=== PATIENT | male | born 1970 | race Caucasian/White ===

== ENCOUNTER 2016-12-30 19:41 | Emergency (ER) | payer OTHER ==
[2016-12-30] MEDS ORDERED: HYDROcodone/Acetaminophen 10/325 mg Tablet ONE (20:44)
--- NOTE | 2016-12-30 22:26 | RAD ---
RIGHT LEG TWO VIEWS: Date: 12-30-16 FINDINGS: An oblique fracture of the distal fibular shaft is present with no displacement. The ankle joint its elf appears intact. The tibia appears intact. IMPRESSION: Oblique fracture of the distal fibular shaft. POS: HOME
== END 2016-12-30 21:00 | disposition home or self-care (01) ==
LOC: BURERS 19:41
DX: S82.831A Other fracture of upper and lower end of right fibula, initial encounter for closed fracture (principal); F17.220 Nicotine dependence, chewing tobacco, uncomplicated; W19.XXXA Unspecified fall, initial encounter
CPT/HCPCS: 27781

== ENCOUNTER 2019-02-11 18:35 | Emergency (ER) | payer OTHER ==
[2019-02-11] MEDS ORDERED: Doxycycline 100 MG CAP PO SCH (19:00)
== END 2019-02-11 19:03 | disposition home or self-care (01) ==
LOC: BURERS 18:35
DX: L03.115 Cellulitis of right lower limb (principal); I10 Essential (primary) hypertension; F17.220 Nicotine dependence, chewing tobacco, uncomplicated
CPT/HCPCS: 99282

== ENCOUNTER 2025-03-19 19:06 | Emergency (ER) | payer OTHER ==
[2025-03-19] MEDS ORDERED: Lidocaine 1%/Epinephrine 1:100K 10 ML VIAL ONE (19:25)
== END 2025-03-19 19:56 | disposition home or self-care (01) ==
LOC: BURERS 19:06
DX: S51.012A Laceration without foreign body of left elbow, initial encounter (principal); I10 Essential (primary) hypertension; F17.220 Nicotine dependence, chewing tobacco, uncomplicated; W18.2XXA Fall in (into) shower or empty bathtub, initial encounter; Y93.E1 Activity, personal bathing and showering
CPT/HCPCS: 12001; 99282